=== PATIENT | female | born 1985 | race Caucasian/White ===

== ENCOUNTER → 2025-06-08 10:57 | Outpatient (CLI) | payer OTHER, SELFPAY ==
--- NOTE | 2025-06-08 10:59 | DI.MG.S_ITS ---
MM screening mammo implant BI: 06/08/2025. BI-RADS: 2 CLINICAL: 40-year old female for bilateral screening mammogram. Tyrer-Cuzick lifetime risk of 10.0%. No personal or first-degree family history of breast cancer. The patient has bilateral implants. PRIOR EXAMS: None. This is a baseline mammogram. MAMMOGRAPHY TECHNIQUE: 2D and 3D (tomosynthesis) digital mammographic views obtained, with additional images as needed for full coverage. Current study was also evaluated with a Computer Aided Detection (CAD) system. DENSITY C. The breasts are heterogeneously dense, which may obscure small masses. IMPLANTS Breast implants present. MAMMOGRAPHY FINDINGS Bilateral: There are no suspicious masses, calcifications, or other findings in the breast. IMPRESSION: * No evidence of malignancy with benign findings. RECOMMENDATIONS Bilateral * Annual screening mammography. OVERALL ASSESSMENT CATEGORY BI-RADS-2: Benign. The [employer] recommends annual screening mammography beginning at age 40 for women with average risk of breast cancer. ELECTRONICALLY SIGNED: Brianne Roman M.D. on 06/08/2025 at 10:22:55 PM PT Interpreting Station ID: [id number]
== END ==
LOC: MAMMO 10:58
PROVIDERS: PCP Student in an Organized Health Care Education/Training Program; Referring Provider Student in an Organized Health Care Education/Training Program; Visit Provider Student in an Organized Health Care Education/Training Program
DX: Z12.31 Encounter for screening mammogram for malignant neoplasm of breast (principal); Z98.82 Breast implant status; R92.333 Mammographic heterogeneous density, bilateral breasts
CPT/HCPCS: 77063; 77067